=== PATIENT | female | born 1985 | race Hispanic/Latino ===

== ENCOUNTER 2021-03-08 19:18 | Emergency (ER) | payer BC, OTHER ==
[~2021-03-08] VITALS: Ht 157.5 cm; Wt 115.7 kg
[2021-03-08] MEDS ORDERED: LANTUS 3ML100 UNITS/ SQ (19:53)
[2021-03-08] MEDS ORDERED: HUMALOG MI100 UNIT/2 SQ (19:54)
[2021-03-08 20:56] VITALS: BP 164/107
== END 2021-03-08 20:56 | disposition home or self-care (01) ==
LOC: FSED 19:50
DX: E11.65 Type 2 diabetes mellitus with hyperglycemia (principal); R53.1 Weakness
CPT/HCPCS: 80053; 85025; 99283

== ENCOUNTER 2022-04-02 15:52 | Emergency (ER) | payer OTHER ==
[~2022-04-02] VITALS: Ht 157.5 cm; Wt 109.8 kg
[~2022-04-02 15:52] MED LIST: HUMALOG MI100 UNIT/2 SQ; LANTUS 3ML100 UNITS/ SQ
[2022-04-02] MEDS ORDERED: HYDROXYZINE HCL50 MG PO (16:30)
[2022-04-02] MEDS ORDERED: DIPHENHYDRAMINE50 M1 PO (16:30)
[2022-04-02] MEDS ORDERED: DEXAMETHASONE SOD PHOS INJ 4 MG/ML SDV ONE (16:48)
[2022-04-02] MEDS ORDERED: DEXAMETHASONE SOD PHOS 10 MG/1 ML VIAL IM ONE (17:00)
== END 2022-04-02 17:08 | disposition home or self-care (01) ==
LOC: FSED 15:55
DX: R21 Rash and other nonspecific skin eruption (principal); E11.9 Type 2 diabetes mellitus without complications
CPT/HCPCS: 96372; 99282; J1100

== ENCOUNTER → 2024-05-17 | Day surgery (SDC) | payer BC, OTHER ==
[~2024-05-17] MED LIST changes: +CYCLOBENZAPRINE10 MG PO; +DICYCLOMINE HCL10 MG PO; +DIPHENHYDRAMINE50 M1 PO; +FENTANYL CITRATE/PF 100MCG/2 ML INJ ONE; +FEROSUL325 MG PO; +HYDROXYZINE HCL50 MG PO; +LIDOCAINE HCL 2% LOCAL INJ 5 ML SDV VIAL INJ ONE; +MIDAZOLAM HCL 2 MG/2 ML VIAL ONE; +NEURONTIN300 MG PO; +OMEPRAZOLE40 MG PO; +ONDANSETRON ODT4 MG PO; +OZEMPIC1 MG/0.71; +PROPOFOL IV EMULSION 10 MG/ML 20 ML VIAL ONE
[2024-05-17] MEDS: LACTATED RINGER'S 1,000 ML ONE (16:01)
[2024-05-17] MEDS: DEXTROSE 5% 250ML 250 ML IV ONE (16:03)
[2024-05-17 19:09] VITALS: TEMP 98.1
[2024-05-17 19:30] VITALS: BP 125/66; PULSE 66; RESP 18; O2SAT 100
== END | disposition home or self-care (01) ==
LOC: ENDO 15:03
PROVIDERS: ATTEND Internal Medicine Gastroenterology
DX: K21.9 Gastro-esophageal reflux disease without esophagitis (principal); D12.4 Benign neoplasm of descending colon; K29.50 Unspecified chronic gastritis without bleeding; K29.80 Duodenitis without bleeding; K31.89 Other diseases of stomach and duodenum; K57.30 Diverticulosis of large intestine without perforation or abscess without bleeding; K62.5 Hemorrhage of anus and rectum; K44.9 Diaphragmatic hernia without obstruction or gangrene; K59.00 Constipation, unspecified; K64.8 Other hemorrhoids; R03.0 Elevated blood-pressure reading, without diagnosis of hypertension; D50.8 Other iron deficiency anemias; E11.9 Type 2 diabetes mellitus without complications; Z79.85 Long-term (current) use of injectable non-insulin antidiabetic drugs; Z79.899 Other long term (current) drug therapy; Z68.41 Body mass index [BMI] 40.0-44.9, adult; Z80.0 Family history of malignant neoplasm of digestive organs
CPT/HCPCS: 43239; 45384; 81025; J2003; J2250; J2704; J3010; J7121